=== PATIENT | male | born 1990 | race Caucasian/White ===

== ENCOUNTER → 2020-08-19 | Outpatient (CLI) | payer OTHER ==
[~2020-08-19] MED LIST: CYCL10 PO; DULO60 PO; MORP30ER PO; ONDA4ODT MM; OXYC5 PO; RXONDA4ODT MM
== END | disposition home or self-care (01) ==
LOC: PLD 16:34 → LAB SHORT 16:34
DX: J02.9 Acute pharyngitis, unspecified (principal)
CPT/HCPCS: 87081; 87147

== ENCOUNTER 2020-10-21 22:56 | Emergency (ER) | payer OTHER ==
[~2020-10-21] VITALS: Ht 185.4 cm; Wt 68.0 kg
[~2020-10-21 22:56] MED LIST changes: -DULO60 PO
[2020-10-21] MEDS ORDERED: DULO60 PO (23:36)
== END 2020-10-22 00:43 | disposition home or self-care (01) ==
LOC: ER 22:56
DX: R55 Syncope and collapse (principal); R51.9 Headache, unspecified
CPT/HCPCS: 36415; 93005; 93010; 99284-25

== ENCOUNTER 2021-06-05 16:05 | Emergency (ER) | payer OTHER ==
[~2021-06-05] VITALS: Ht 185.4 cm; Wt 113.4 kg
[~2021-06-05 16:05] MED LIST changes: +DULO60 PO
== END 2021-06-05 19:10 | disposition home or self-care (01) ==
LOC: ER 16:05
DX: G43.909 Migraine, unspecified, not intractable, without status migrainosus (principal); F17.210 Nicotine dependence, cigarettes, uncomplicated; Z87.820 Personal history of traumatic brain injury
CPT/HCPCS: 96374; 96375; 99283-25; A9270; J0780; J1100; J1200; J1885; J2765; J7030

== ENCOUNTER 2021-06-07 08:44 | Observation (INO) | payer OTHER ==
[~2021-06-07] VITALS: Ht 185.4 cm; Wt 116.4 kg
[2021-06-07 09:27] LABS: BASOPHILS ABSOLUTE AUTO 0.03 K/mm3 (0.00-0.23); BASOPHILS PERCENT AUTO 1 % (0-2); EOSINOPHILS ABSOLUTE AUTO 0.03 K/mm3 (0.00-0.68); EOSINOPHILS PERCENT AUTO 1 % (0-6); Hematocrit 41.3 % (37.0-53.0); Hemoglobin 13.8 g/dL (13.5-17.5); IMMATURE GRAN ABSOLUTE AUTO 0.02 K/mm3 (0.00-0.10); IMMATURE GRAN PERCENT AUTO 0 % (0-1); LYMPHOCYTES PERCENT AUTO 16 % (21-46); MONOCYTES ABSOLUTE AUTO 0.82 K/mm3 (0.16-1.47); MONOCYTES PERCENT AUTO 13 % (4-13); Mean Corpuscular HGB 28.6 pg (26.0-34.0); Mean Corpuscular HGB Conc 33.4 g/dL (31.5-36.5); Mean Corpuscular Volume 86 fL (80-100); Mean Platelet Volume 10.1 fL (9.1-12.4); NEUTROPHILS ABSOLUTE AUTO 4.55 K/mm3 (1.96-9.15); NEUTROPHILS PERCENT AUTO 71 % (41-73); Platelet Count 214 K/mm3 (150-400); RDW Coefficient Variation 12.8 % (11.7-14.2); RDW Standard Deviation 40.1 fL (35.1-46.3); Red Blood Cell Count 4.83 M/mm3 (4.30-5.90); White Blood Cell Count 6.45 K/mm3 (4.00-11.30)
[2021-06-07 09:52] LABS: Alanine Aminotransfer (ALT/SGP 49 U/L (12-78); Albumin/Globulin Ratio 0.8 (0.8-1.8); Alk Phos 68 U/L (50-136); Anion Gap 2 mmol/L (6-16); Aspartate Aminotrans (AST/SGOT 30 U/L (12-37); Bilirubin, Total 0.2 mg/dL (0.1-1.0); Blood Urea Nitrogen 12 mg/dL (8-24); Bun/Creatinine Ratio 14.1 (12.0-20.0); CO2, Blood 30 mmol/L (21-32); Calcium, Blood 8.2 mg/dL (8.5-10.1); Chloride, Blood 104 mmol/L (98-108); Creatinine, Blood 0.85 mg/dL (0.60-1.20); Globulin, Blood 3.7 g/dL (2.2-4.0); Glomerular Filtration Rate >60 (60-); Glucose, Blood 95 mg/dL (70-99); Potassium, Blood 4.4 mmol/L (3.5-5.5); Sodium, Blood 136 mmol/L (136-145); Total Protein, Blood 6.7 g/dL (6.4-8.2)
[2021-06-07 14:36] LABS: International Normalized Ratio 1.05
[2021-06-07 16:07] LABS: Color, CSF No Color (No Color)
[2021-06-07 16:08] LABS: Appearance, CSF Clear (Clear); RBC Count, CSF 103 /mm3 (0-0); WBC Count, CSF 2 /mm3 (0-5)
[2021-06-07 16:17] LABS: Glucose, CSF 54 mg/dL (40-70)
[2021-06-07 16:25] LABS: Appearance, CSF Clear (Clear); Color, CSF No Color (No Color); RBC Count, CSF 9 /mm3 (0-0); WBC Count, CSF 0 /mm3 (0-5)
[2021-06-07 17:33] LABS: Cryptococcus Neoformans/Gattii Not Detected (NOT DETECT); Enterovirus Not Detected (NOT DETECT); Escherichia Coli K1 Not Detected (NOT DETECT); Haemophilus Influenza Not Detected (NOT DETECT); Herpes Simplex Virus 1 Not Detected (NOT DETECT); Herpes Simplex Virus 2 Not Detected (NOT DETECT); Human Herpesvirus 6 Not Detected (NOT DETECT); Human Parechovirus Not Detected (NOT DETECT); Listeria Monocytogenes Not Detected (NOT DETECT); Neisseria Meningitidis Not Detected (NOT DETECT); Streptococcus Agalactiae Not Detected (NOT DETECT); Streptococcus Pneumoniae Not Detected (NOT DETECT); Varicella Zoster Virus Not Detected (NOT DETECT)
--- NOTE | 2021-06-07 19:42 | NUR ---
transfer report from [employer] [place] on 30 year old Male with Viral meningitis per lumbar puncture results in ER. Reported headache ER visit last night today. T 101.2 this AM , last 99.4. Will be in droplet contact isolation for viral meningitis. Await admission.
[2021-06-07 21:51] LABS: Source, Urine Clean Catch
[2021-06-07 21:53] LABS: Bilirubin, Urine Neg (Neg); Blood, Urine Neg (Neg); Glucose Qualitative, Urine 4+ (Neg); Ketones, Urine Neg (Neg); Leukocyte Esterase, Urine Neg (Neg); Nitrite, Urine Neg (Neg); Protein, Urine Neg (Neg); Urobilinogen, Urine NORM (Normal)
[2021-06-07 21:59] LABS: Appearance, Urine Clear (Clear); Color, Urine Yellow (P-Yellow)
[2021-06-07 23:12] LABS: Influenza A Negative (NEGATIVE); Influenza B Negative (NEGATIVE)
[2021-06-08] MEDS ORDERED: ACET500 PO (01:05)
[2021-06-08] MEDS ORDERED: IBUP800 PO (01:06)
[2021-06-08 04:45] LABS: BASOPHILS ABSOLUTE AUTO 0.04 K/mm3 (0.00-0.23); BASOPHILS PERCENT AUTO 1 % (0-2); EOSINOPHILS ABSOLUTE AUTO 0.02 K/mm3 (0.00-0.68); EOSINOPHILS PERCENT AUTO 0 % (0-6); Hematocrit 38.4 % (37.0-53.0); IMMATURE GRAN ABSOLUTE AUTO 0.02 K/mm3 (0.00-0.10); IMMATURE GRAN PERCENT AUTO 0 % (0-1); LYMPHOCYTES ABSOLUTE AUTO 1.55 K/mm3 (0.84-5.20); LYMPHOCYTES PERCENT AUTO 21 % (21-46); MONOCYTES ABSOLUTE AUTO 1.12 K/mm3 (0.16-1.47); MONOCYTES PERCENT AUTO 15 % (4-13); Mean Corpuscular HGB 28.6 pg (26.0-34.0); Mean Corpuscular HGB Conc 33.9 g/dL (31.5-36.5); Mean Corpuscular Volume 84 fL (80-100); Mean Platelet Volume 10.6 fL (9.1-12.4); NEUTROPHILS ABSOLUTE AUTO 4.72 K/mm3 (1.96-9.15); NEUTROPHILS PERCENT AUTO 63 % (41-73); Platelet Count 230 K/mm3 (150-400); RDW Coefficient Variation 12.5 % (11.7-14.2); RDW Standard Deviation 38.2 fL (35.1-46.3); Red Blood Cell Count 4.55 M/mm3 (4.30-5.90); White Blood Cell Count 7.47 K/mm3 (4.00-11.30)
[2021-06-08 05:04] LABS: Alanine Aminotransfer (ALT/SGP 41 U/L (12-78); Albumin, Blood 2.6 g/dL (3.4-5.0); Albumin/Globulin Ratio 0.7 (0.8-1.8); Alk Phos 65 U/L (50-136); Anion Gap 3 mmol/L (6-16); Aspartate Aminotrans (AST/SGOT 19 U/L (12-37); Bilirubin, Total 0.3 mg/dL (0.1-1.0); Blood Urea Nitrogen 13 mg/dL (8-24); Bun/Creatinine Ratio 19.1 (12.0-20.0); CO2, Blood 29 mmol/L (21-32); Calcium, Blood 8.1 mg/dL (8.5-10.1); Chloride, Blood 104 mmol/L (98-108); Creatinine, Blood 0.68 mg/dL (0.60-1.20); Globulin, Blood 3.7 g/dL (2.2-4.0); Glomerular Filtration Rate >60 (60-); Glucose, Blood 98 mg/dL (70-99); Potassium, Blood 4.3 mmol/L (3.5-5.5); Sodium, Blood 136 mmol/L (136-145); Total Protein, Blood 6.3 g/dL (6.4-8.2)
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
--- NOTE | 2021-06-08 06:01 | NUR ---
droplet contact dc per rn baby Carrie. RN says standard precaution for viral meningitis.
--- NOTE | 2021-06-08 14:08 | NUR ---
DISCHARGE DISCHARGE MEDICATIONS AND INSTRUCTIONS EXPLAINED TO PATIENT. PATIENT STATED UNDERSTANDING. PCP FOLLOW UP SCHEDULED. BELONGINGS WITH PATIENT. IV REMOVED WITHOUT ISSUE. PATIENT AMBULATED TO PRIVATE VEHICLE.
== END 2021-06-08 13:32 | disposition home or self-care (01) ==
LOC: ER 08:44 → MEDS 08:46 → ER 17:55 → MEDS 17:55
PROVIDERS: Physician Assistant; ADMIT Internal Medicine
DX: B34.9 Viral infection, unspecified (principal); R51.9 Headache, unspecified; F17.210 Nicotine dependence, cigarettes, uncomplicated; F32.A Depression, unspecified; F41.9 Anxiety disorder, unspecified
CPT/HCPCS: 36415; 62270; 70450; 77003; 80053; 81003; 82945; 83036; 83605; 84157; 85025; 85610; 87070; 87205; 87483; 87804; 89051; 96365; 96366; 96367; 96372; 96375; 96376; 99285-25; A9270; G0378; J0133; J0696; J0780; J1100; J1170; J1200; J1650; J1885; J2765; J7030; J7060

== ENCOUNTER 2022-12-07 09:41 | Day surgery (SDC) | payer OTHER ==
[~2022-12-07] VITALS: Ht 185.4 cm; Wt 129.8 kg
[2022-12-07] VITALS (7 sets, daily range): BP systolic 123–137; BP diastolic 70–82
[~2022-12-07 09:41] MED LIST changes: +ACET500 PO; +CAND16 PO; +IBUP600 PO; +IBUP800 PO; +METO100ER PO; +MORP15ER PO; +Norco 5-325 Ta1 EACH PO; +Valium5 MG PO
--- NOTE | 2022-12-07 13:16 | NUR ---
Discharge instructions reviewed with patient. Patient verbalizes understanding. Copy given to patient to take home. Dressing to procedure site clean, dry, intact with no visible drainage, swelling, erythema or bruising noted. PT ATE 2 BAGS OF CHIPS AND DRANK 2 CAN OF SODA. PAIN MEDICATION GIVEN. PT IN NO ACUTE DISTRESS. VS NOT RETAINED BUT PT WAS EVALUTED THE ENTIRE TIME HE WAS HERE WITH VITAL SIGNS ALL WITHIN NORMAL RANGE. PT ABLE TO DRESS HIMSELF AND DISCHARGED VIA WHEELCHAIR - HOME WITH .
== END 2022-12-07 13:17 | disposition home or self-care (01) ==
LOC: ORSCMMR 09:41 → ORD 13:15 → ORSCMMR 13:17
PROVIDERS: Surgery
PROC: 0JH60WZ Insertion of Totally Implantable Vascular Access Device into Chest Subcutaneous Tissue and Fascia, Open Approach (ICD-10-PCS; principal; 2022-12-07 12:00)
DX: C85.10 Unspecified B-cell lymphoma, unspecified site (principal); F17.210 Nicotine dependence, cigarettes, uncomplicated; I10 Essential (primary) hypertension; Z79.899 Other long term (current) drug therapy
CPT/HCPCS: 77001; A9270; C1788; J0690; J1642; J2250; J2704; J3010; J7120